=== PATIENT | male | born 1980 | race Caucasian/White ===

== ENCOUNTER → 2018-01-02 | Outpatient (CLI) | payer OTHER ==
[~2018-01-02] MED LIST: FISH OIL 1,001000 M2 PO
== END | disposition home or self-care (01) ==
LOC: LITH 06:24
DX: N20.0 Calculus of kidney (principal); Z98.890 Other specified postprocedural states; Z88.0 Allergy status to penicillin; Z88.8 Allergy status to other drugs, medicaments and biological substances; Z87.19 Personal history of other diseases of the digestive system